=== PATIENT | female | born 1965 | race African-American/Black ===

== ENCOUNTER 2021-05-03 15:38 | Emergency (ER) | payer BC, OTHER ==
[~2021-05-03] VITALS: Ht 157.5 cm; Wt 95.3 kg
[2021-05-03 16:01] VITALS: BP 146/93
[2021-05-03] MEDS ORDERED: B12-FOLIC ACID1 EACH PO (17:28)
[2021-05-03] MEDS ORDERED: LOSARTAN-HCTZ1 EAC3 PO (17:28)
[2021-05-03] MEDS ORDERED: CELEXA 10 MG TA10 M1 PO (17:28)
[2021-05-03] MEDS ORDERED: MOBIC7.5 MG PO (17:42)
== END 2021-05-03 17:45 | disposition home or self-care (01) ==
LOC: ER 15:38
DX: M25.562 Pain in left knee (principal); M25.572 Pain in left ankle and joints of left foot

== ENCOUNTER 2021-06-22 10:31 | Emergency (ER) | payer BC, OTHER ==
[~2021-06-22] VITALS: Ht 157.5 cm; Wt 95.3 kg
[~2021-06-22 10:31] MED LIST: B12-FOLIC ACID1 EACH PO; CELEXA 10 MG TA10 M1 PO; LOSARTAN-HCTZ1 EAC3 PO; MOBIC7.5 MG PO
[2021-06-22 11:12] LABS: ABSOLUTE NEUTROPHILS 4.5 thou/uL (1.4-8.2); BASOPHILS 0.8 % (0.0-2.0); EOSINOPHILS 1.3 % (0.0-3.0); HEMATOCRIT 42.1 % (37.0-47.0); HEMOGLOBIN 13.7 gm/dL (12.0-15.0); LYMPHOCYTES 25.8 % (24.0-44.0); MCHC 32.4 g/dL (28.0-37.0); MONOCYTES 9.6 % (1.0-8.0); PLATELET COUNT 268 thou/uL (150-400); POLYS 62.5 % (36.0-66.0); RBC 5.47 mil/uL (4.20-5.00); RDW 17.1 % (10.5-14.5); WBC 7.3 thou/uL (4.0-11.0)
[2021-06-22 11:39] LABS: CALCIUM 9.5 mg/dL (8.5-10.1); CREATININE 1.2 mg/dL (0.6-1.0); POTASSIUM 3.7 mmol/L (3.5-5.1)
[2021-06-22 11:48] LABS: MAGNESIUM 1.9 mg/dL (1.8-2.4)
[2021-06-22] MEDS ORDERED: KRISTALOSE20 GM PO (13:17)
[2021-06-22 13:28] VITALS: BP 132/71
--- NOTE | 2021-06-22 15:42 | EKG ---
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: Shabbir SULLIVAN : 1965 Requested By: Rakel Guy Order Number: [id number] MD: Venkata Martinez Measurements Intervals [place]imes Rate: 111 P: 78 MT: 166 QRS: 29 QRSD: 137 T: 228 QT: 341 QTc: 464 Interpretive Statements Sinus tachycardia Left bundle branch block Baseline wander in lead(s) V1,V2,V5,V6 Compared to ECG 06/22/2021 10:46:31 No significant changes Electronically Signed On 06-22-2021 15:42:12 CDT by Venkata Martinez [email or web address] <ELECTRONICALLY SIGNED> By: Venkata Martinez MD, [facility] 06/22/21 1542 [id number] Venkata Martinez MD, [facility] /EPI
--- NOTE | 2021-06-23 06:50 | EKG ---
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 : 1965 Requested By: Rakel Guy Order Number: [id number] MD: Venkata Martinez Measurements Intervals [place] Rate: 172 P: 0 MO: QRS: 5 QRSD: 134 T: 179 QT: 295 QTc: 499 Interpretive Statements Wide-QRS tachycardia Left bundle branch block Baseline wander in lead(s) II,III,aVL,aVF,V1,V4,V5,V6 No previous ECG available for comparison Electronically Signed On 06-23-2021 6:49:44 CDT by Venkata Martinez [email or web address] <ELECTRONICALLY SIGNED> By: Venkata Martinez MD, [facility] 06/23/21 0649 45 45 Venkata Martinez MD, [facility] /EPI
== END 2021-06-22 13:28 | disposition home or self-care (01) ==
LOC: ER 10:31
PROVIDERS: Emergency Medicine
DX: I47.1 Supraventricular tachycardia (principal); Z79.899 Other long term (current) drug therapy

== ENCOUNTER → 2021-07-13 | Outpatient (CLI) | payer BC, OTHER ==
[~2021-07-13] VITALS: Ht 157.5 cm; Wt 98.4 kg
[~2021-07-13] MED LIST changes: +KRISTALOSE20 GM PO
--- NOTE | ~2021-07-13 | P ---
[facility] [place] [address] PROCEDURE REPORT Name: LOIS RILEY Room #: [facility] OharaXavier#: [id number] Admission: 07/13/21 Attend Phys: Pee Silverman MD Discharge: Date of : 65 Report #: [id number] THIS REPORT FOR: cc: FAM - Family physician unknown FAM - Family physician unknown Pee Silverman MD ~ DATE OF SERVICE: 07/13/2021 SUPRAVENTRICULAR TACHYCARDIA ABLATION PREOPERATIVE DIAGNOSIS: Supraventricular tachycardia. 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 PROCEDURE PERFORMED: 1. SVT ablation -- CPT code 30207. 2. Left atrial pacing recording, CPT code 30400. 3. Program stimulation pacing after IV drug infusion, CPT code 49398. 4. 3D mapping, CPT code 38684. HISTORY: The patient is a 55-year-old female with a history of recurrent SVT. She has had documented SVT with left bundle branch aberration. This has been adenosine sensitive or has terminated in the past with Valsalva maneuvers. She is here for EP study and ablation. ANESTHESIA: The patient underwent MAC anesthesia with no anesthesia related complications. DESCRIPTION OF PROCEDURE: The patient underwent informed consent. We discussed the details of the procedure including the risks, which include but not limited to bleeding, vascular damage, stroke, [place], cardiac perforation as well as damage to the pilot point conduction system requiring permanent pacemaker. She understood these risks and is willing to proceed. The patient was brought to the EP laboratory in a fasting and sedated state, prepped and draped in sterile fashion. I obtained access to the right femoral vein x4 placing an 8-6 and a 7-Anguillan short sheath in the right femoral vein under fluoroscopy, 3 quadripolar catheters were placed at the HRA, His, and RV position and a decapolar catheter was placed into the coronary sinus. At baseline, the patient was in sinus rhythm with a sinus cycle length of 600 milliseconds, AZ interval 160 milliseconds, QRS duration 75 milliseconds, QT interval 375 milliseconds, AH interval 90 milliseconds, and HV interval 47 milliseconds. Atrial burst pacing was performed and the patient went immediately into SVT with a tachycardia cycle length of 360 milliseconds, septal VA time of 110 milliseconds. Of note, the patient had PVCs as well and SVT, none of which terminated or affected the tachycardia cycle length. She also [address] [address] PROCEDURE REPORT Name: ROSEMARYLOIS Room #: [facility] Anand#: [id number] Admission: 07/13/21 Attend Phys: Pee Silverman MD Discharge: Date of : 65 Report #: [id number] then went from a narrow QRS complex to a left bundle branch block aberrantly conducted SVT with no change in the septal VA time nor tachycardia cycle length. This was consistent with her known SVT with aberration. I then performed ventricular entrainment and there was a VAHV response and a PPI minus tachycardia cycle length of 180 milliseconds consistent with typical AV kathi reentrant tachycardia. Ventricular single atrial extrastimuli were delivered and again she went immediately into SVT. I was able to terminate this. I then performed ventricular pacing and VA block was noted at 350 milliseconds and when she demonstrated VA block to be at a later, she went back into SVT. I terminated this. Again, I performed a single ventricular extrastimuli and this again induced the identical SVT. Based on these findings, a diagnosis of atypical AV kathi reentry tachycardia was made. Next, a SR0 sheath and a 4 mm ablation catheter was placed in the right atrium. A 3D geometry of the right atrium was created with specific emphasis of His bundle region and the slow pathway region. I performed 5 ablation lesions and 2 of these lesions resulted in nice junctionals. Therefore, I started testing again and she went right back into SVT again. Therefore, I went back in and performed additional several lesions and again 3 of these lesions resulted in nice junctionals again. Again, I performed testing and with a single atrial extrastimuli, I would get 2, 3, and 4-beat runs of the atypical AV kathi reentrant tachycardia. Therefore, I went back with the ablation catheter and performed 6 more lesions which were slightly higher than the previous lesions, but were 11 mm below the His cloud. There were some nice slow pathway potentials here that were slightly sharp and I still had good impedances and on 3 of these lesions, I got a great junctional response that were slow and there was never any AV conduction issues. POST-ABLATION TESTING: Isoproterenol was started at 1 mcg per minute and aggressive atrial pacing was performed. AV block was noted at 300 milliseconds. AV kathi ERP was noted at 270 milliseconds at a [address] cycle length and I could not induce any SVT. Isoproterenol was turned off. VA block was noted at 360 milliseconds. VA ERP was noted at 330 milliseconds at a [address] cycle length. VA conduction was both midline and decremental. AV block was noted at 300 milliseconds. With aggressive atrial and ventricular pacing maneuvers, we could not induce SVT any further. As such, the procedure was concluded. Post-ablation, she was in sinus rhythm, sinus cycle length 675 milliseconds, AZ interval 185 milliseconds, QRS duration 82 milliseconds, QT interval 399 milliseconds, AH interval 100 milliseconds, and HV interval 49 milliseconds. Such, all catheters and sheaths were pulled. Hemostasis was obtained. The patient awoke neurologically and hemodynamically intact with no complications. [facility] [address] [place] [address] PROCEDURE REPORT Name: ROSEMARYLOIS [id number] Admission: 07/13/21 Attend Phys: Pee Silverman MD Discharge: Date of : 65 Report #: [id number] CONCLUSION: 1. Successful ablation of atypical AV kathi reentrant tachycardia that demonstrated both narrow complex tachycardia as well as SVT with aberration. 2. Normal SA kathi function. 3. Normal AV normal function. 4. Normal His-Purkinje function. 5. No other inducible arrhythmias on or off isoproterenol. By: [id number] Pee Silverman MD /nt
[2021-07-13 10:39] VITALS: BP 98/74
[2021-07-13 10:51] LABS: HEMATOCRIT 42.2 % (37.0-47.0); HEMOGLOBIN 13.4 gm/dL (12.0-15.0); MCH 24.5 pg (26.0-34.0); MCHC 31.8 g/dL (28.0-37.0); RBC 5.48 mil/uL (4.20-5.00); RDW 16.2 % (10.5-14.5); WBC 5.5 thou/uL (4.0-11.0)
[2021-07-13 11:07] LABS: APTT 25.7 Seconds (24.5-32.8); INR 0.96; PROTIME 10.5 Seconds (10.5-12.1)
[2021-07-13 11:10] LABS: CALCIUM 9.8 mg/dL (8.5-10.1); POTASSIUM 3.5 mmol/L (3.5-5.1)
[2021-07-13 11:19] LABS: ALBUMIN 3.9 g/dL (3.4-5.0); TOTAL BILIRUBIN 0.3 mg/dL (0.2-1.0); TOTAL PROTEIN 8.7 g/dL (6.4-8.2)
== END | disposition home or self-care (01) ==
LOC: CATH 08:38
PROVIDERS: ATTEND Internal Medicine Cardiovascular Disease
DX: I47.1 Supraventricular tachycardia (principal); I10 Essential (primary) hypertension; K21.9 Gastro-esophageal reflux disease without esophagitis; Z98.890 Other specified postprocedural states; Z79.899 Other long term (current) drug therapy; Z20.822 Contact with and (suspected) exposure to COVID-19
CPT/HCPCS: 62110; 62900; 70005